=== PATIENT | male | born 1950 | race Caucasian/White ===

== ENCOUNTER 2019-05-01 06:38 | Observation (INO) | payer OTHER, BC ==
[~2019-05-01] VITALS: Ht 175.3 cm; Wt 98.9 kg
--- NOTE | ~2019-05-01 | P ---
[facility] [place] [address] [place] [address] PROCEDURE REPORT Name: ROBBIE TITUS [facility] [place] Room #: 216-P [facility]..#: [id number] Admission: 05/01/19 Attend Phys: Kwesi Chen MD Discharge: Date of : 54 Report #: [id number] THIS REPORT FOR: //name// CC: Liang Chen PROCEDURE: Pacemaker implantation. PREOPERATIVE DIAGNOSES: 1. Sick sinus syndrome. 2. Tachycardia-bradycardia syndrome. 3. Symptomatic bradycardia. HISTORY: The patient is a 69-year-old male with history of symptomatic bradycardia secondary to sick sinus syndrome and tachycardia-bradycardia syndrome here for a dual chamber pacemaker implantation. ANESTHESIA: The patient underwent MAC anesthesia with no anesthesia related complications. DESCRIPTION OF PROCEDURE: The patient underwent informed consent. We discussed the details of the procedure including the risks, which include but not limited to bleeding, infection, vascular damage, cardiac perforation, and pneumothorax. He understood these risks and is willing to proceed. The patient was prepped and draped in a sterile fashion, received IV antibiotics and underwent a right-sided venogram showing patency of the right axillary vein. Next, lidocaine was injected. Incision was made, pocket was created over the prepectoral fascia and access was obtained twice to the right axillary vein using the extrathoracic approach with sheaths positioned using the modified Seldinger technique. The RV lead was positioned in the right ventricular mid septum and the atrial lead was placed in the right atrial appendage both with adequate pacing and sensing thresholds. Leads were sutured to the prepectoral fascia, connected to the device. Tug test was performed. The device was placed in the pocket, irrigated with vancomycin. The pocket was closed in 2 layers and surgical glue placed to the outer skin layer. The patient awoke neurologically and hemodynamically intact. No complications and no significant bleeding. The implanted pacemaker was a Medtronic model #W3DR01, serial #[id number]. Atrial lead is a Medtronic model #5076, serial #[id number]. The RV lead is a Medtronic model #5076, serial #[id number]. Atrial lead demonstrated P-wave 1.1 millivolts, pacing impedance of 513 ohms and pacing threshold 0.5 volts at 0.4 milliseconds. RV lead demonstrated R-wave of 7.5 millivolts, pacing impedance of 570 ohms, pacing threshold 0.25 volts at 0.4 milliseconds. Device is programmed DDDR 60-130 mode. CONCLUSION: [facility] [email or web address] [address] PROCEDURE REPORT Name: ROBBIE TITUS [facility] [place] Room #: 216-P [facility]#: [id number] Admission: 05/01/19 Attend Phys: Kwesi Chen MD Discharge: Date of : 54 Report #: [id number] 1. Successful dual-chamber pacemaker implantation. 2. Satisfactory atrial and ventricular pacing and sensing thresholds. By: 0945 [id number] Kwesi Chen MD /william
[2019-05-01 07:12] VITALS: BP 146/71
[2019-05-01 07:16] LABS: ABSOLUTE NEUTROPHILS 5.4 thou/uL (1.4-8.2); BASOPHILS 0.9 % (0.0-2.0); EOSINOPHILS 2.2 % (0.0-3.0); HEMATOCRIT 42.2 % (42.0-52.0); HEMOGLOBIN 14.5 gm/dL (14.0-18.0); LYMPHOCYTES 31.9 % (24.0-44.0); MCH 32.5 pg (26.0-34.0); MCHC 34.2 g/dL (28.0-37.0); MCV 94.9 fL (80.0-100.0); MONOCYTES 9.4 % (1.0-8.0); PLATELET COUNT 194 thou/uL (150-400); POLYS 55.6 % (36.0-66.0); RBC 4.45 mil/uL (4.50-6.00); RDW 12.6 % (10.5-14.5); WBC 9.7 thou/uL (4.0-11.0)
[2019-05-01 07:24] LABS: CALCIUM 9.4 mg/dL (8.5-10.1); CREATININE 1.3 mg/dL (0.7-1.3); POTASSIUM 4.4 mmol/L (3.5-5.1)
[2019-05-01 07:29] LABS: APTT 26.1 Seconds (24.5-32.8); PROTIME 9.9 Seconds (9.3-11.4)
[2019-05-01 07:31] LABS: ALBUMIN 4.2 g/dL (3.4-5.0); TOTAL BILIRUBIN 0.8 mg/dL (<0.1-1.0); TOTAL PROTEIN 7.7 g/dL (6.4-8.2)
[2019-05-01] MEDS ORDERED: NORVASC5 MG PO (07:36)
[2019-05-01] MEDS ORDERED: ASPIR 8181 MG PO (07:36)
[2019-05-01] MEDS ORDERED: FLAXSEED OIL1000 MG PO (07:37)
[2019-05-01] MEDS ORDERED: COZAAR 25 MG TA25 M1 PO (07:37)
[2019-05-01] MEDS ORDERED: UNICOMPLEX M TA1 TA1 PO (07:38)
[2019-05-01] MEDS ORDERED: PAXIL20 MG PO (07:39)
[2019-05-01] MEDS ORDERED: TRAZODONE HCL100 MG PO (07:39)
[2019-05-01] MEDS ORDERED: TURMERIC500 M2 PO (07:41)
[2019-05-01 11:02] VITALS: BP 145/79
[2019-05-01 18:28] VITALS: BP 144/71
[2019-05-01 19:56] VITALS: BP 153/71
[2019-05-02 00:24] VITALS: BP 125/65
[2019-05-02 05:05] VITALS: BP 117/65
[2019-05-02 08:52] VITALS: BP 136/64
[2019-05-02 10:33] VITALS: BP 136/64
--- NOTE | 2019-05-02 18:02 | EKG ---
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
== END 2019-05-02 11:19 | disposition home or self-care (01) ==
LOC: OR 06:38 → 2N 10:47 → ENTRNSPT 05-02 10:38 → EDTRNSPTSTS 05-02 10:43 → 2N 05-02 11:19
PROVIDERS: ADMIT Internal Medicine Cardiovascular Disease
DX: I49.5 Sick sinus syndrome (principal); I45.9 Conduction disorder, unspecified; I10 Essential (primary) hypertension; Z79.82 Long term (current) use of aspirin; Z79.899 Other long term (current) drug therapy
CPT/HCPCS: 62110; 62900; 70005